=== PATIENT | female | born 1990 | race Hispanic/Latino ===

== ENCOUNTER 2020-02-20 13:09 | Emergency (ER) | payer SELFPAY ==
[~2020-02-20] VITALS: Ht 157.5 cm; Wt 103.9 kg
[2020-02-20] MEDS ORDERED: CLINDAMYCIN HC300 MG PO (13:31)
[2020-02-20] MEDS ORDERED: SODIUM BICARBONATE 8.4% SYRING 50 ML ONE (13:36)
[2020-02-20] MEDS ORDERED: LIDOCAINE HCL 1% LOCAL INJ 20 ML VIAL ONE (13:36)
[2020-02-20 14:23] VITALS: BP 132/68
== END 2020-02-20 14:25 | disposition home or self-care (01) ==
LOC: ER 13:29
DX: L05.01 Pilonidal cyst with abscess (principal)
CPT/HCPCS: 10081; 99283; J2001